=== PATIENT | female | born 1980 | race American Indian/Alaskan Native ===

== ENCOUNTER 2021-01-26 12:06 | Emergency (ER) | payer MEDICAID ==
[2021-01-26 12:28] VITALS: BP 122/89
--- NOTE | 2021-01-26 12:39 | Emergency Department Report ---
ED ENT HPI - General Chief complaint: Dental/Oral Stated complaint: TOOTH AND EAR PAIN Time Seen by Provider: 01/26/21 12:33 Source: patient Mode of arrival: Ambulatory Limitations: No Limitations - History of Present Illness Initial comments: 40-year-old female with a known history of poor dentition presents to the ER today with complaints of left upper jaw dental pain. Patient states that her pain started last night. She states that the pain radiates into her ear and is also causing her to have a headache. She denies any obvious swelling, facial redness, fever, chills, difficulty swallowing or any difficulty breathing. She states that she has been to a few dentists, but they keep giving her the run around. She states that one recommended having surgery, and when she tried to follow back up, they told her that she had to reschedule but she did have it rescheduled. She states that she has been trying multiple [id number] medications without much relief. Patient states that she smoked tobacco, but she denies any other illicit drug use or alcohol abuse. MD complaint: tooth pain -: days(s) (1) - Related Data Previous Rx's Medication Instructions Recorded Last Taken Type Clindamycin [Clindamycin CAP] 300 mg PO Q6H #40 capsule 01/26/21 Unknown Rx Ketorolac [Toradol] 10 mg PO Q6H PRN #20 tablet 01/26/21 Unknown Rx Allergies Allergy/AdvReac Type Severity Reaction Status Date / Time No Known Allergies Allergy Verified 01/26/21 12:27 ED Dental HPI - General Chief complaint: Dental/Oral Stated complaint: TOOTH AND EAR PAIN Time Seen by Provider: 01/26/21 12:33 Source: patient Mode of arrival: Ambulatory Limitations: No Limitations - Related Data Previous Rx's Medication Instructions Recorded Last Taken Type Clindamycin [Clindamycin CAP] 300 mg PO Q6H #40 capsule 01/26/21 Unknown Rx Ketorolac [Toradol] 10 mg PO Q6H PRN #20 tablet 01/26/21 Unknown Rx Allergies Allergy/AdvReac Type Severity Reaction Status Date / Time No Known Allergies Allergy Verified 01/26/21 12:27 ED Review of Systems ROS: Stated complaint: TOOTH AND EAR PAIN Other details as noted in HPI Comment: All other systems reviewed and negative Constitutional: denies: chills, fever ENT: ear pain, dental pain Respiratory: denies: cough, shortness of breath, SOB with exertion, SOB at rest, wheezing Cardiovascular: denies: chest pain, palpitations, syncope, paroxysmal nocturnal dyspnea Gastrointestinal: denies: abdominal pain, nausea, vomiting, diarrhea, constipation, hematemesis, hematochezia Genitourinary: denies: urgency, dysuria, frequency, hematuria, discharge, abnormal menses, dyspareunia Musculoskeletal: denies: back pain, joint swelling, arthralgia Skin: denies: rash, lesions Neurological: headache. denies: weakness, paresthesias, confusion Psychiatric: denies: anxiety, depression, auditory hallucinations, visual hallucinations, homicidal thoughts, suicidal thoughts Hematological/Lymphatic: denies: easy bleeding, easy bruising, swollen glands ED Past Medical Hx - Medications Home Medications: Home Medications Medication Instructions Recorded Confirmed Last Taken Type Clindamycin [Clindamycin CAP] 300 mg PO Q6H #40 capsule 01/26/21 Unknown Rx Ketorolac [Toradol] 10 mg PO Q6H PRN #20 tablet 01/26/21 Unknown Rx ED Physical Exam - General Limitations: No Limitations General appearance: alert, in no apparent distress - Head Head exam: Present: atraumatic, normocephalic, normal inspection - Eye Eye exam: Present: normal appearance, PERRL, EOMI Pupils: Present: normal accommodation - ENT ENT exam: Present: normal exam, mucous membranes moist, TM's normal bilaterally - Expanded ENT Exam Expanded Mouth exam: Present: normal external inspection Teeth exam: Present: dental caries 1 - Dental Tenderness, Other (Severe dental decay, with gingival swelling, but no obvious abscess) Throat exam: Positive: normal inspection - Neck Neck exam: Present: normal inspection. Absent: meningismus, lymphadenopathy - Respiratory Respiratory exam: Present: normal lung sounds bilaterally. Absent: respiratory distress, wheezes, rales, rhonchi - Cardiovascular Cardiovascular Exam: Present: regular rate, normal rhythm, normal heart sounds - Neurological Exam Neurological exam: Present: alert, oriented X3, CN II-XII intact, normal gait - Psychiatric Psychiatric exam: Present: normal affect, normal mood - Skin Skin exam: Present: intact ED Course Vital Signs 01/26/21 12:27 Temperature 98.1 F Pulse Rate 89 Respiratory 18 Rate Blood Pressure 122/89 [Left] O2 Sat by Pulse 100 Oximetry Critical care attestation.: If time is entered above; I have spent that time in minutes in the direct care of this critically ill patient, excluding procedure time. ED Disposition Clinical Impression: Dental caries, Abscess, periapical Disposition: - TO HOME OR SELFCARE Is pt being admited?: No Does the pt Need Aspirin: No Condition: Stable Instructions: Dental Abscess, [id number] Additional Instructions: Recommend that you take the clindamycin, and Toradol as prescribed. It is important that you try to follow-up with the dentist. A list of dentists will be given to you in your discharge instructions. Return to the ER if your symptoms changes or worsens in any way. Prescriptions: Clindamycin [Clindamycin CAP] 300 mg PO Q6H #40 capsule Ketorolac [Toradol] 10 mg PO Q6H PRN #20 tablet PRN Reason: Pain Referrals: PRIMARY CARE, [Referring] - 3-5 Days Time of Disposition: 12:47
== END 2021-01-26 12:47 | disposition home or self-care (01) ==
LOC: ED 12:06
DX: K02.9 Dental caries, unspecified (principal); K04.7 Periapical abscess without sinus; Z79.899 Other long term (current) drug therapy
CPT/HCPCS: 99281

== ENCOUNTER 2021-03-17 08:01 | Emergency (ER) | payer MEDICAID ==
--- NOTE | 2021-03-17 08:19 | Emergency Department Report ---
ED ENT HPI - General Stated complaint: TOOTHACHE Time Seen by Provider: 03/17/21 08:06 Source: patient, RN notes reviewed Limitations: No Limitations - History of Present Illness Initial comments: This is a 40-year-old female nontoxic, well nourished in appearance, no acute signs of distress presents to the ED with c/o of left upper toothache 2 months. Patient stated was seen last month and was prescribed clindamycin and only took about 3 to 4 pills as she stated but did not finish the antibiotic course. Stated has some facial swelling. Patient denies following up with a dentist. Patient describes toothache as aching level of 8 out of 10. Patient denies any numbness, tingling, fever, chills, headache, stiff neck, abdominal pain, chest pain, shortness of breath. Patient denies any drug allergies. MD complaint: tooth pain -: month(s) Location: tooth # 1 - Pain here Severity: mild Severity scale (0 -10): 8 Quality: aching Consistency: constant Improves with: none Worsens with: none Context- Dental: history of dental caries, poor dental care Associated Symptoms: gum swelling, toothache. denies: fever, cough, pain with swallowing, sore throat, tinnitus, hearing loss, discharge from ear, rhinorrhea - Related Data Previous Rx's Medication Instructions Recorded Last Taken Type Clindamycin [Clindamycin CAP] 300 mg PO Q6H #40 capsule 01/26/21 Unknown Rx Ketorolac [Toradol] 10 mg PO Q6H PRN #20 tablet 01/26/21 Unknown Rx Chlorhexidine Mouthwash [Peridex] 15 ml MM BID #1 bottle 03/17/21 Unknown Rx Clindamycin [Clindamycin CAP] 300 mg PO Q8H #21 cap 03/17/21 Unknown Rx Naproxen 500 mg PO Q12H PRN #12 tablet 03/17/21 Unknown Rx Allergies Allergy/AdvReac Type Severity Reaction Status Date / Time No Known Allergies Allergy Verified 01/26/21 12:27 ED Dental HPI - General Stated complaint: TOOTHACHE Time Seen by Provider: 03/17/21 08:06 - Related Data Previous Rx's Medication Instructions Recorded Last Taken Type Clindamycin [Clindamycin CAP] 300 mg PO Q6H #40 capsule 01/26/21 Unknown Rx Ketorolac [Toradol] 10 mg PO Q6H PRN #20 tablet 01/26/21 Unknown Rx Chlorhexidine Mouthwash [Peridex] 15 ml MM BID #1 bottle 03/17/21 Unknown Rx Clindamycin [Clindamycin CAP] 300 mg PO Q8H #21 cap 03/17/21 Unknown Rx Naproxen 500 mg PO Q12H PRN #12 tablet 03/17/21 Unknown Rx Allergies Allergy/AdvReac Type Severity Reaction Status Date / Time No Known Allergies Allergy Verified 01/26/21 12:27 ED Review of Systems ROS: Stated complaint: TOOTHACHE Other details as noted in HPI Comment: All other systems reviewed and negative Constitutional: denies: chills, fever Eyes: denies: eye pain, eye discharge, vision change ENT: dental pain. denies: ear pain, throat pain, hearing loss, epistaxis, congestion Respiratory: denies: cough, shortness of breath, wheezing Cardiovascular: denies: chest pain, palpitations Endocrine: no symptoms reported Gastrointestinal: denies: abdominal pain, nausea, diarrhea Genitourinary: denies: urgency, dysuria, discharge Musculoskeletal: denies: back pain, joint swelling, arthralgia Skin: denies: rash, lesions Neurological: denies: headache, weakness, paresthesias Psychiatric: denies: anxiety, depression Hematological/Lymphatic: denies: easy bleeding, easy bruising ED Past Medical Hx - Medications Home Medications: Home Medications Medication Instructions Recorded Confirmed Last Taken Type Clindamycin [Clindamycin CAP] 300 mg PO Q6H #40 capsule 01/26/21 Unknown Rx Ketorolac [Toradol] 10 mg PO Q6H PRN #20 tablet 01/26/21 Unknown Rx Chlorhexidine Mouthwash [Peridex] 15 ml MM BID #1 bottle 03/17/21 Unknown Rx Clindamycin [Clindamycin CAP] 300 mg PO Q8H #21 cap 03/17/21 Unknown Rx Naproxen 500 mg PO Q12H PRN #12 tablet 03/17/21 Unknown Rx ED Physical Exam - General General appearance: alert, in no apparent distress - Head Head exam: Present: atraumatic, normocephalic - Eye Eye exam: Present: normal appearance - Expanded ENT Exam Expanded Ear exam: Present: normal external inspection Mouth exam: Present: normal external inspection, tongue normal. Absent: yohan oling, trismus, muffled voice Teeth exam: Present: dental caries, fractured tooth #, dental tenderness #, gingival enlargement, other (some upper left facial swelling with no induration or flatuance noted. No dental abscess.) Throat exam: Positive: normal inspection, other (Uvula midline). Negative: tonsillar erythema, tonsillomegaly, tonsillar exudate, R peritonsillar mass, L peritonsillar mass - Neck Neck exam: Present: normal inspection, full ROM. Absent: lymphadenopathy - Respiratory Respiratory exam: Absent: respiratory distress - Cardiovascular Cardiovascular Exam: Present: regular rate - Extremities Exam Extremities exam: Present: full ROM - Back Exam Back exam: Present: full ROM - Neurological Exam Neurological exam: Present: alert, oriented X3, normal gait - Psychiatric Psychiatric exam: Present: normal affect, normal mood - Skin Skin exam: Present: warm, dry, intact, normal color. Absent: rash ED Course Vital Signs 03/17/21 08:08 Temperature 98.6 F Pulse Rate 109 H Respiratory 20 Rate Blood Pressure 117/93 O2 Sat by Pulse 98 Oximetry - Reevaluation(s) Reevaluation #1: 03/17/21 08:18 Patient is speaking in full sentences with no signs of distress noted. ED Medical Decision Making - Medical Decision Making This is a 40-year-old female that presents with gingivitis and dental caries. Patient is stable and was examined by me. Patient will be treated with clindamycin. Instructed patient to finish full course of antibiotics. Patient was instructed to follow-up with oral maxillary surgeon in 24 hours or if symptoms would worsen to return to emergency room as was possible. . At time of discharge, the patient does not seem toxic or ill in appearance. No acute signs of distress noted. Patient agrees to discharge treatment plan of care. No further questions noted by the patient. Critical care attestation.: If time is entered above; I have spent that time in minutes in the direct care of this critically ill patient, excluding procedure time. ED Disposition Clinical Impression: Dental caries, Gingivitis Disposition: HOME / SELF CARE / HOMELESS Is pt being admited?: No Does the pt Need Aspirin: No Condition: Stable Additional Instructions: Follow-up with oral maxillary surgeon in 24 hours or if symptoms would worsen to return to emergency room as was possible. [facility] [employer] [facility] Address: [id number], [place] [address] Hours: Thursday Closed Thursday 8AM-1PM, 2-5PM Thursday 8AM-1PM, 2-5PM Thursday 8AM-1PM, 2-5PM 8AM-1PM, 2-5PM Thursday 7AM-2PM Thursday Closed Prescriptions: Clindamycin [Clindamycin CAP] 300 mg PO Q8H #21 cap Naproxen 500 mg PO Q12H PRN #12 tablet PRN Reason: Pain , Severe (7-10) Chlorhexidine Mouthwash [Peridex] 15 ml MM BID #1 bottle Referrals: PRIMARY CARE, [Referring] - 3-5 Days [facility] [Outside] - 3-5 Days [facility] [Outside] - 3-5 Days Time of Disposition: 08:21
[2021-03-17 08:22] VITALS: BP 117/93
== END 2021-03-17 09:25 | disposition home or self-care (01) ==
LOC: ED 08:01
DX: K02.9 Dental caries, unspecified (principal); K05.10 Chronic gingivitis, plaque induced
CPT/HCPCS: 99282

== ENCOUNTER 2021-07-03 11:20 | Emergency (ER) | payer MEDICAID | END 2021-07-03 14:00 | disposition left against medical advice (07) | LOC: ED 11:20 | DX: R10.9 Unspecified abdominal pain (principal); M54.9 Dorsalgia, unspecified; Z53.21 Procedure and treatment not carried out due to patient leaving prior to being seen by health care provider ==

== ENCOUNTER 2021-11-19 21:20 | Emergency (ER) | payer MEDICAID | END 2021-11-19 21:25 | disposition left against medical advice (07) | LOC: ED 21:20 | DX: R52 Pain, unspecified (principal); Z53.21 Procedure and treatment not carried out due to patient leaving prior to being seen by health care provider ==